=== PATIENT | male | born 1950 | race Caucasian/White ===

== ENCOUNTER 2022-04-01 15:21 | Day surgery (SDC) | payer MEDICARE, OTHER ==
[2022-04-01] MEDS ORDERED: Prozac20 MG PO (18:44)
[2022-04-01] MEDS ORDERED: Prinivil10 MG PO (18:44)
[2022-04-01] MEDS ORDERED: Vitamin C100 M1 PO (18:45)
[2022-04-01] MEDS ORDERED: THERA-D2000 UNIT PO (18:45)
[2022-04-01] MEDS ORDERED: Aspir 8181 MG PO (18:46)
[2022-04-01] MEDS ORDERED: ZYRTEC10 M2 PO (18:46)
[2022-04-01] MEDS ORDERED: ATOR40TA PO (18:46)
[2022-04-01] MEDS ORDERED: FLONASE ALLERG9.9 M2 (18:48)
[2022-04-01] MEDS ORDERED: XARELTO2.5 M1 PO (18:49)
== END 2022-04-01 17:17 | disposition home or self-care (01) ==
LOC: ATC 15:21
DX: U07.1 COVID-19 (principal); E78.5 Hyperlipidemia, unspecified; G47.30 Sleep apnea, unspecified; Z87.891 Personal history of nicotine dependence; Z79.899 Other long term (current) drug therapy
CPT/HCPCS: M0247

== ENCOUNTER → 2023-03-10 | Outpatient (CLI) | payer MEDICARE, OTHER ==
[~2023-03-10] MED LIST: ATOR40TA PO; Aspir 8181 MG PO; FLONASE ALLERG9.9 M2; Prinivil10 MG PO; Prozac20 MG PO; THERA-D2000 UNIT PO; Vitamin C100 M1 PO; XARELTO2.5 M1 PO; ZYRTEC10 M2 PO
== END ==
LOC: LAB SHORT 17:26 → LAB 17:26
DX: R30.0 Dysuria (principal)
CPT/HCPCS: 87086

== ENCOUNTER 2023-07-15 22:40 | Emergency (ER) | payer MEDICARE, OTHER ==
[~2023-07-15] VITALS: Ht 180.3 cm; Wt 63.5 kg
[2023-07-15 22:57] LABS: BASOPHILS ABSOLUTE AUTO 0.06 K/mm3 (0.00-0.23); BASOPHILS PERCENT AUTO 1 % (0-2); EOSINOPHILS ABSOLUTE AUTO 0.07 K/mm3 (0.00-0.68); EOSINOPHILS PERCENT AUTO 1 % (0-6); Hemoglobin 14.5 g/dL (13.5-17.5); IMMATURE GRAN ABSOLUTE AUTO 0.02 K/mm3 (0.00-0.10); IMMATURE GRAN PERCENT AUTO 0 % (0-1); LYMPHOCYTES ABSOLUTE AUTO 1.51 K/mm3 (0.84-5.20); LYMPHOCYTES PERCENT AUTO 17 % (21-46); MONOCYTES PERCENT AUTO 8 % (4-13); Mean Corpuscular Volume 94 fL (80-100); Mean Platelet Volume 11.2 fL (9.1-12.4); NEUTROPHILS ABSOLUTE AUTO 6.49 K/mm3 (1.96-9.15); NEUTROPHILS PERCENT AUTO 73 % (41-73); Platelet Count 170 K/mm3 (150-400); RDW Coefficient Variation 13.9 % (11.7-14.2); RDW Standard Deviation 48.1 fL (35.1-46.3); Red Blood Cell Count 4.67 M/mm3 (4.30-5.90); White Blood Cell Count 8.85 K/mm3 (4.00-11.30)
[2023-07-15 23:24] LABS: Albumin, Blood 3.9 g/dL (3.4-5.0); Albumin/Globulin Ratio 1.1 (0.8-1.8); Bilirubin, Total 0.5 mg/dL (0.1-1.0); Bun/Creatinine Ratio 17.5 (12.0-20.0); Calcium, Blood 9.8 mg/dL (8.5-10.1); Creatinine, Blood 1.03 mg/dL (0.60-1.20); Globulin, Blood 3.4 g/dL (2.2-4.0); Potassium, Blood 4.7 mmol/L (3.5-5.5); Total Protein, Blood 7.3 g/dL (6.4-8.2)
[2023-07-16 00:47] LABS: Source, Urine Clean Catch
[2023-07-16 00:57] LABS: Appearance, Urine Clear (Clear); Bilirubin, Urine Neg (Neg); Blood, Urine Neg (Neg); Color, Urine Yellow (P-Yellow); Glucose Qualitative, Urine Neg (Neg); Ketones, Urine 3+ (Neg); Leukocyte Esterase, Urine Neg (Neg); Nitrite, Urine Neg (Neg); Protein, Urine Neg (Neg); Specific Gravity, Urine 1.015 (1.003-1.022); Urobilinogen, Urine NORM (Normal)
[2023-07-16 01:40] LABS: Influenza A, PCR NEGATIVE (NEGATIVE); Influenza B, PCR NEGATIVE (NEGATIVE); Resp Syncytial Virus, PCR NEGATIVE (NEGATIVE); SARS-Cov-2 (COVID-19) PCR, MMC NEGATIVE (NEGATIVE)
[2023-07-16 02:30] VITALS: BP 118/63
== END 2023-07-16 02:55 | disposition home or self-care (01) ==
LOC: ER 22:40
PROVIDERS: Student in an Organized Health Care Education/Training Program
DX: R20.0 Anesthesia of skin (principal); R41.0 Disorientation, unspecified; I10 Essential (primary) hypertension; I69.392 Facial weakness following cerebral infarction; Z79.01 Long term (current) use of anticoagulants; Z79.899 Other long term (current) drug therapy
CPT/HCPCS: 0241U; 70450; 71046; 80053; 81003; 84484; 85025; 93005; 93010; 96361; 96365; 99291-25; 99292; J3475; J7030